=== PATIENT | female | born 1980 | race Caucasian/White ===

== ENCOUNTER 2018-02-26 20:55 | Inpatient (IN) | payer MEDICAID ==
[~2018-02-26] VITALS: Ht 165.1 cm; Wt 138.5 kg
[~2018-02-26 20:55] MED LIST: AMLO2.5T45 PO; LEVO25TA7 PO
[2018-02-26] MEDS ORDERED: FAMOTIDINE 20MG/2ML VIAL IV ONE (21:30)
[2018-02-26] MEDS ORDERED: METHYLPREDNISOLONE SOD SUCC 125 MG/2 ML VIAL IV ONE (21:30)
[2018-02-26] MEDS ORDERED: EPINEPHRINE 1:1000 1 MG/ML AMP IM ONE (21:30)
[2018-02-26] MEDS ORDERED: DIPHENHYDRAMINE 50MG/ML VIAL IV ONE (21:30)
[2018-02-26] MEDS ORDERED: SODIUM CHLORIDE 0.9% 1000ML BAG (SEPSIS BOLUS) IV ONE (21:30)
[2018-02-26 22:00] LABS: BASOPHILS % 0.2 % (0.0-2.0); EOSINOPHILS % 4.1 % (0.0-5.0); HEMATOCRIT. 29.1 % (36.0-48.0); HEMOGLOBIN. 9.7 g/dL (12.0-16.0); MEAN CORPUSCULAR HEMOGLOBIN 29.9 pg (28.0-32.0); MEAN CORPUSCULAR VOLUME 89.8 fL (81.0-99.0); MEAN PLATELET VOLUME 8.2 fl (7.4-10.4); MONOCYTES % 6.6 % (2.0-8.0); NEUTROPHILS % 59.1 % (40.0-76.0); PLATELET 139 x1000/uL (130-400); RED BLOOD CELL COUNT 3.24 mill/uL (4.2-5.4); RED CELL DISTRIBUTION WIDTH 15.6 % (11.6-14.6)
[2018-02-26 22:02] LABS: CHLORIDE 99 mEq/L (98-107)
[2018-02-26 22:03] LABS: INR 1.1; PROTHROMBIN TIME 11.2 sec (9.4-11.6)
[2018-02-26 22:06] LABS: ETHANOL BLOOD < 10 mg/dL
[2018-02-26 22:12] LABS: HCG SCREEN NEGATIVE
[2018-02-26] MEDS ORDERED: KETOROLAC 30MG/ML VIAL IV ONE (23:00)
[2018-02-26] MEDS ORDERED: ACETAMINOPHEN 325MG TABLET PO ONE (23:00)
[2018-02-26] MEDS ORDERED: ONDANSETRON HCL 4MG/2ML VIAL IV ONE (23:00)
[2018-02-26] MEDS ORDERED: MORPHINE SULFATE 4 MG/ML CPJ (NOT FOR IM USE) IV ONE (23:00)
[2018-02-27] VITALS (11 sets, daily range): BP systolic 105–140; BP diastolic 54–92
[2018-02-27] MEDS ORDERED: IPRATROPIUM/ALBUTEROL 0.5-3(2.5)MG/3ML NEB HHN PRN (07:15)
[2018-02-27 08:56] LABS: HEMATOCRIT 26.1 % (36.0-48.0); HEMOGLOBIN 8.7 g/dL (12.0-16.0); MEAN CORPUSCULAR HEMOGLOBIN 29.9 pg (28.0-32.0); MEAN CORPUSCULAR VOLUME 89.4 fL (81.0-99.0); PLATELET 128 x1000/uL (130-400); RED BLOOD CELL COUNT 2.92 mill/uL (4.2-5.4); RED CELL DISTRIBUTION WIDTH 15.1 % (11.6-14.6)
[2018-02-27] MEDS: METHYLPREDNISOLONE SOD SUCC 40 MG/ML VIAL IV SCH ×3 (09:51→23:15)
[2018-02-27] MEDS ORDERED: ACETAMINOPHEN 650MG/20.3ML UDC GT PRN (10:00)
[2018-02-27] MEDS ORDERED: NA PHOS,M-B/NA PHOS,DI-BA ENEMA 118ML PR PRN (10:00)
[2018-02-27] MEDS ORDERED: HYDROCODONE/ACETAMINOPHEN 5/325MG TABLET PO PRN (10:00)
[2018-02-27] MEDS ORDERED: GUAIFENESIN 200MG/10ML SUGAR FREE UDC PO PRN (10:00)
[2018-02-27] MEDS ORDERED: ONDANSETRON HCL 4MG/2ML VIAL IV PRN (10:00)
[2018-02-27] MEDS ORDERED: MAGNESIUM/ALUMINUM HYDROXIDE/SIMETHICONE 30ML UDC PO PRN (10:00)
[2018-02-27] MEDS ORDERED: IPRATROPIUM/ALBUTEROL 0.5-3(2.5)MG/3ML NEB INH PRN (10:00)
[2018-02-27] MEDS ORDERED: PIPERACILLIN/TAZ 3.375G PREMIX 50 ML IV SCH (10:00)
[2018-02-27] MEDS ORDERED: CLONIDINE 0.1MG TABLET PO PRN (10:00)
[2018-02-27] MEDS ORDERED: ACETAMINOPHEN 325MG TABLET PO PRN (10:00)
[2018-02-27] MEDS ORDERED: HYDROCODONE/ACETAMINOPHEN 10/325MG TABLET PO PRN (10:00)
[2018-02-27] MEDS ORDERED: LORAZEPAM 0.5MG TABLET PO PRN (10:00)
[2018-02-27] MEDS ORDERED: DOCUSATE SODIUM 100MG CAPSULE PO PRN (10:00)
[2018-02-27] MEDS: HYDROCODONE/ACETAMINOPHEN 5/325MG TABLET PO PRN ×2 (10:00→23:14)
[2018-02-27] MEDS ORDERED: ACETAMINOPHEN 650MG SUPP PR PRN (10:00)
[2018-02-27] MEDS ORDERED: FAMO20TA8 PO (10:06)
[2018-02-27] MEDS ORDERED: CLIN150C14 PO (10:06)
[2018-02-27] MEDS ORDERED: CLIN300C11 MT (10:06)
[2018-02-27] MEDS ORDERED: VANCOMYCIN 2,000 MG in SODIUM CHLORIDE 0.9% 500 ML IV NR (12:00)
[2018-02-27] MEDS: DIPHENHYDRAMINE 50MG/ML VIAL IV PRN ×2 (13:32→18:13)
[2018-02-27 15:29] LABS: CREATINE KINASE 13 IU/L (26-192)
[2018-02-27] MEDS ORDERED: FAMOTIDINE 20MG/2ML VIAL IV SCH (21:00)
[2018-02-28] VITALS (7 sets, daily range): BP systolic 123–148; BP diastolic 65–95
[2018-02-28 00:12] LABS: CREATINE KINASE 11 IU/L (26-192)
[2018-02-28] MEDS: DIPHENHYDRAMINE 50MG/ML VIAL IV PRN ×2 (01:51→08:11)
[2018-02-28 06:05] LABS: HEMATOCRIT. 22.1 % (36.0-48.0); HEMOGLOBIN. 7.5 g/dL (12.0-16.0); MEAN CORPUSCULAR HEMOGLOBIN 30.4 pg (28.0-32.0); MEAN CORPUSCULAR VOLUME 89.5 fL (81.0-99.0); MEAN PLATELET VOLUME 8.6 fl (7.4-10.4); PLATELET 110 x1000/uL (130-400); RED BLOOD CELL COUNT 2.46 mill/uL (4.2-5.4)
[2018-02-28 06:34] LABS: CHLORIDE 108 mEq/L (98-107)
[2018-02-28 06:43] LABS: LDL CHOLESTEROL 96 mg/dL (5-100)
[2018-02-28 06:44] LABS: HDL CHOLESTEROL 42 mg/dL (40-59); T4 FREE 0.75 ng/dL (0.76-1.46)
[2018-02-28] MEDS ORDERED: LEVOTHYROXINE SODIUM 25MCG TABLET PO SCH (06:50)
[2018-02-28 07:26] LABS: PLATELET ESTIMATE DECREASED
[2018-02-28] MEDS: METHYLPREDNISOLONE SOD SUCC 40 MG/ML VIAL IV SCH ×2 (08:03→15:30)
[2018-02-28] MEDS ORDERED: AMLODIPINE 2.5MG TABLET PO SCH (09:00)
[2018-02-28] MEDS ORDERED: FAMOTIDINE 20MG TABLET PO SCH (09:00)
[2018-02-28] MEDS ORDERED: EPOETIN ALFA 10000UNITS/ML VIAL SUBCUT SCH (21:00)
[2018-03-01] MEDS ORDERED: FAMOTIDINE 20MG/2ML VIAL IV SCH (09:00)
[2018-03-01] MEDS ORDERED: PREDNISONE 20MG TABLET PO SCH (09:00)
== END 2018-02-28 20:05 | disposition home or self-care (01) | DRG 811 ==
LOC: ER 20:55 → 3WST 02-27 00:51 → EDBEDREQ 02-27 00:58 → EDBEDREQTM 02-27 00:58 → ENRESERV 02-27 02:36 → 6WST 02-28 00:59
PROVIDERS: ADMIT Internal Medicine; ATTEND Internal Medicine
PROC: 5A1D70Z Performance of Urinary Filtration, Intermittent, Less than 6 Hours Per Day (ICD-10-PCS; principal; 2018-02-27)
PROC: 5A1D70Z Performance of Urinary Filtration, Intermittent, Less than 6 Hours Per Day (ICD-10-PCS; 2018-02-28)
DX: T78.2XXA Anaphylactic shock, unspecified, initial encounter (principal); N18.6 End stage renal disease; B19.10 Unspecified viral hepatitis B without hepatic coma; I13.11 Hypertensive heart and chronic kidney disease without heart failure, with stage 5 chronic kidney disease, or end stage renal disease; L03.115 Cellulitis of right lower limb; E66.01 Morbid (severe) obesity due to excess calories; I82.501 Chronic embolism and thrombosis of unspecified deep veins of right lower extremity; I25.10 Atherosclerotic heart disease of native coronary artery without angina pectoris; T78.3XXA Angioneurotic edema, initial encounter; D64.9 Anemia, unspecified; E03.9 Hypothyroidism, unspecified; L29.9 Pruritus, unspecified; Z23 Encounter for immunization; Z90.49 Acquired absence of other specified parts of digestive tract; Z99.2 Dependence on renal dialysis; Z88.0 Allergy status to penicillin; Z88.2 Allergy status to sulfonamides; Z79.899 Other long term (current) drug therapy; Z68.43 Body mass index [BMI] 50.0-59.9, adult
CPT/HCPCS: 36415; 71045; 80048; 80053; 80061; 80202; 82550; 83605; 83690; 83880; 84439; 84443; 84481; 84484; 84703; 85025; 85027; 85610; 87040; 87804; 93005; 93970; 96361; 96372; 96374; 96375; 97162; 99291; G0482; J0885; J1200; J1885; J2270; J2405; J2920; J2930; J3370; J3490; J7030; J7040

== ENCOUNTER 2018-04-26 10:06 | Emergency (ER) | payer MEDICAID ==
[~2018-04-26] VITALS: Ht 165.1 cm; Wt 136.0 kg
[~2018-04-26 10:06] MED LIST changes: +FAMO20TA8 PO
[2018-04-26] MEDS ORDERED: KETOROLAC 30MG/ML VIAL IV STA (10:36)
[2018-04-26] MEDS ORDERED: MORPHINE SULFATE 4 MG/ML CPJ (NOT FOR IM USE) IV STA (10:36)
[2018-04-26] MEDS ORDERED: ONDANSETRON HCL 4MG/2ML VIAL IV STA (10:36)
[2018-04-26] MEDS ORDERED: ASPIRIN 81MG TABLET PO STA (10:36)
[2018-04-26] MEDS ORDERED: DIPHENHYDRAMINE 50MG/ML VIAL IV ONE (10:45)
[2018-04-26 11:12] LABS: BASOPHILS % 0.9 % (0.0-2.0); EOSINOPHILS % 3.1 % (0.0-5.0); HEMATOCRIT. 30.5 % (36.0-48.0); HEMOGLOBIN. 10.5 g/dL (12.0-16.0); LYMPHOCYTES % 14.8 % (20.0-50.0); MEAN CORPUSCULAR HEMOGLOBIN 31.7 pg (28.0-32.0); MEAN CORPUSCULAR VOLUME 92.6 fL (81.0-99.0); MONOCYTES % 5.5 % (2.0-8.0); NEUTROPHILS % 75.7 % (40.0-76.0); PLATELET 216 x1000/uL (130-400); RED CELL DISTRIBUTION WIDTH 15.5 % (11.6-14.6)
[2018-04-26 11:19] LABS: CHLORIDE 100 mEq/L (98-107)
[2018-04-26 11:22] LABS: D-DIMER 0.91 mg/L FEU (<0.50); PARTIAL THROMBOPLASTIN TIME 45.5 sec (23.4-31.0); PROTHROMBIN TIME 10.2 sec (9.4-11.6)
[2018-04-26 11:46] LABS: HCG SCREEN NEGATIVE
[2018-04-26] MEDS ORDERED: VANCOMYCIN 1 G PREMIX 200 ML IV SCH (12:00)
[2018-04-26] MEDS ORDERED: MORPHINE SULFATE 4 MG/ML CPJ (NOT FOR IM USE) IV ONE (13:15)
[2018-04-26] MEDS ORDERED: LIDOCAINE HCL 1% 20ML VIAL (Pyxis) INJ ONE (13:21)
[2018-04-26] MEDS ORDERED: SODIUM BICARBONATE 4% (2.4MEQ) 5ML VIAL IV ONE (13:21)
[2018-04-26] MEDS ORDERED: HEPARIN 1000 UNITS/ML 10ML ONE (13:21)
[2018-04-26 13:45] VITALS: BP 111/62
[2018-04-26 14:00] VITALS: BP 124/76
[2018-04-26 14:03] VITALS: BP 111/62
[2018-04-26 14:15] VITALS: BP 119/65
[2018-04-26 14:47] VITALS: BP 128/74
== END 2018-04-26 15:36 | disposition home or self-care (01) ==
LOC: ER 10:06 → CANRESERV 15:22 → ENRESERV 15:22 → ER 15:36 → CANBEDREQ 16:21 → SUPCPDRO 19:26
DX: T82.42XA Displacement of vascular dialysis catheter, initial encounter (principal); I12.0 Hypertensive chronic kidney disease with stage 5 chronic kidney disease or end stage renal disease; N18.6 End stage renal disease; R07.89 Other chest pain; Z76.0 Encounter for issue of repeat prescription; Z88.0 Allergy status to penicillin; Z88.7 Allergy status to serum and vaccine; Z88.2 Allergy status to sulfonamides; Z88.1 Allergy status to other antibiotic agents; Z99.2 Dependence on renal dialysis
CPT/HCPCS: 36415; 36581; 71045; 77001; 80053; 83690; 83880; 84443; 84484; 84703; 85025; 85379; 85610; 85730; 93005; 96365; 96366; 96375; 96376; 99285; C1750; J1200; J1642; J1885; J2270; J2405; J3370; J3490; Z7610; J1644